=== PATIENT | female | born 1985 | race Caucasian/White ===

== ENCOUNTER 2018-05-07 13:54 | Emergency (ER) | payer OTHER, MEDICAID ==
[2018-05-07] MEDS: KETOROLAC 30 MG INJ IM (15:21)
== END 2018-05-07 16:59 | disposition home or self-care (01) ==
LOC: FTE 16:59
DX: M79.601 Pain in right arm (principal); M79.645 Pain in left finger(s); M54.5 Low back pain
CPT/HCPCS: 29125; 72100; 73030-RT; 73080-RT; 73110-RT; 73130; 81025; 96372; 99284-25